=== PATIENT | male | born 1960 | race Caucasian/White ===

== ENCOUNTER 2021-05-05 16:29 | Observation (INO) | payer MEDICARE ==
[2021-05-05 18:12] VITALS: BMI 51.7
[2021-05-05] MEDS ORDERED: traMADol HCl 50 MG TAB PO SCH (18:45)
[2021-05-05] MEDS ORDERED: Dextrose 50% Abboject 50 ML SYRINGE SLOW IVP PRN (20:04)
[2021-05-05] MEDS ORDERED: Dextrose 5% in Water 1,000 ML IV PRN (20:04)
[2021-05-05] MEDS ORDERED: HumaLOG 300 UNITS/3 ML VIAL SC PRN ×2 (20:04)
[2021-05-05] MEDS ORDERED: Acetaminophen 325 MG TAB PO PRN (20:16)
[2021-05-05] MEDS ORDERED: Ondansetron PF 4 MG/2 ML Vial IVP PRN (20:16)
[2021-05-05] MEDS ORDERED: Senokot S 8.6-50 MG TAB PO PRN (20:16)
[2021-05-05] MEDS ORDERED: Ondansetron ODT 4 MG TAB PO PRN (20:16)
[2021-05-05] MEDS ORDERED: Atorvastatin Calcium 40 MG TAB PO SCH (21:00)
[2021-05-05] MEDS: Meclizine HCl 25 MG TAB PO SCH (21:12)
[2021-05-05] MEDS: HumuLIN 70/30 (300 UNITS/3 ML VIAL) SC SCH (21:13)
[2021-05-05] MEDS: Lantus 1000 UNITS/10 ML VIAL SC SCH (21:14)
[2021-05-05] MEDS ORDERED: Melatonin 3 MG TAB PO SCH (21:35)
[2021-05-05] MEDS: HYDROcodone/Acetaminophen 5/325 mg Tablet PO PRN (23:17)
[2021-05-06 07:27] LABS: Hemoglobin 16.5 g/dL (14.0-18.0); Mean Corpuscular HGB CONC 32.5 g/dL (32.0-36.0); Mean Corpuscular Hemoglobin 32.7 pg (27.0-31.0); Mean Platelet Volume 7.9 fL (7.4-10.4); Platelet Count 147 thou/uL (130-400); RBC Distribution Width 12.2 % (11.5-14.5); Red Blood Cell (RBC) Count 5.05 mill/uL (4.70-6.10); White Blood Cell (WBC) Count 5.4 thou/uL (4.8-10.8)
[2021-05-06] MEDS ORDERED: Furosemide 40 MG TAB PO SCH (07:30)
[2021-05-06 07:45] LABS: Anion Gap 15 mmol/L (10-20); BUN (Urea Nitrogen) 18 mg/dL (8.4-25.7); Calc. Creatinine Clearance 103 mL/min (70-130); Carbon Dioxide 29 mmol/L (23-31); Chloride 97 mmol/L (98-107); Glucose 93 mg/dL (80-115); Magnesium 1.8 mg/dL (1.6-2.6); Potassium 3.9 mmol/L (3.5-5.1); Sodium 137 mmol/L (136-145)
[2021-05-06] MEDS: HYDROcodone/Acetaminophen 5/325 mg Tablet PO PRN ×2 (08:09→13:27)
[2021-05-06] MEDS: Lantus 1000 UNITS/10 ML VIAL SC SCH (08:12)
[2021-05-06] MEDS: HumuLIN 70/30 (300 UNITS/3 ML VIAL) SC SCH (08:12)
[2021-05-06] MEDS: Carvedilol 3.125 MG TAB PO SCH ×2 (08:13→16:11)
[2021-05-06] MEDS: Meclizine HCl 25 MG TAB PO SCH ×2 (08:13→16:05)
[2021-05-06] MEDS ORDERED: Clopidogrel Bisulfate 75 MG TAB PO SCH (09:00)
[2021-05-06] MEDS ORDERED: Aspirin Chewable 81 MG TAB PO SCH (09:00)
[2021-05-06 09:56] LABS: Band 5 % (5-11); Eosinophils 6 % (0-10); Lymphocytes 34 % (21-51); MDiff Complete? YES; Monocytes 21 % (0-10); Neutrophil 34 % (42-75); Platelet Morphology Comment Appears Adequate; RBC Morphology Normal
[2021-05-06 15:42] VITALS: BP 142/82; TEMP 98.2
== END 2021-05-06 16:33 | disposition home or self-care (01) ==
LOC: NEURO 17:20
PROVIDERS: ADMIT Family Medicine; ATTEND Internal Medicine
DX: G45.9 Transient cerebral ischemic attack, unspecified (principal); F17.220 Nicotine dependence, chewing tobacco, uncomplicated; E11.65 Type 2 diabetes mellitus with hyperglycemia; J44.9 Chronic obstructive pulmonary disease, unspecified; I11.0 Hypertensive heart disease with heart failure; I50.42 Chronic combined systolic (congestive) and diastolic (congestive) heart failure; I42.9 Cardiomyopathy, unspecified; E11.51 Type 2 diabetes mellitus with diabetic peripheral angiopathy without gangrene; E78.5 Hyperlipidemia, unspecified; G89.29 Other chronic pain; M25.512 Pain in left shoulder; I25.10 Atherosclerotic heart disease of native coronary artery without angina pectoris; I25.2 Old myocardial infarction; I48.91 Unspecified atrial fibrillation; F51.01 Primary insomnia; Z86.73 Personal history of transient ischemic attack (TIA), and cerebral infarction without residual deficits; Z79.02 Long term (current) use of antithrombotics/antiplatelets; Z79.4 Long term (current) use of insulin; Z79.82 Long term (current) use of aspirin; Z79.899 Other long term (current) drug therapy; Z95.5 Presence of coronary angioplasty implant and graft
CPT/HCPCS: 36415; 36416; 70551; 80048; 83735; 83880; 85025; G0378; J1815